=== PATIENT | male | born 1995 | race Caucasian/White ===

== ENCOUNTER 2024-05-05 02:45 | Emergency (ER) | payer OTHER ==
[~2024-05-05] VITALS: Ht 175.3 cm; Wt 78.5 kg
[2024-05-05 02:47] VITALS: BP 118/86; PULSE 108; RESP 16; TEMP 98.7; O2SAT 98
[2024-05-05 03:35] LABS: BASOPHILS % (AUTO) 0.2 % (0.0-2.0); EOSINOPHILS # (AUTO) 0.1 K/uL (0-0.4); EOSINOPHILS % (AUTO) 0.4 % (0.0-4.0); HEMATOCRIT 45.9 % (36-52); HEMOGLOBIN 15.6 g/dL (12.0-18.0); LYMPHOCYTES # (AUTO) 0.7 K/uL (2.0-11.5); LYMPHOCYTES % (AUTO) 5.1 % (20.5-51.1); MEAN CORPUSCULAR HEMOGLOBIN 31 pg (27-31); MEAN CORPUSCULAR HGB CONC 34 g/dL (33-37); MEAN CORPUSCULAR VOLUME 90.9 fL (80-94); MONOCYTES # (AUTO) 0.5 K/uL (0.8-1.0); NEUTROPHILS # (AUTO) 12.2 K/uL (1.8-7.7); NEUTROPHILS % (AUTO) 90.3 % (42.2-75.2); PLATELET COUNT (AUTO) 235 K/uL (140-450); RED BLOOD CELL COUNT(AUTO) 5.05 MIL/uL (4.20-6.10); RED CELL DISTRIBUTION WIDTH 13.9 % (11.6-13.7); WHITE BLOOD COUNT (AUTO) 13.5 K/uL (4.8-10.8)
[2024-05-05] MEDS: NACL 0.9% 2,000 ML IV ONE (03:38)
[2024-05-05] MEDS: ONDANSETRON 4 MG/2 ML VIAL IVP ONE (03:40)
[2024-05-05] MEDS: MORPHINE SULFATE 4 MG/ML SYR IVP ONE (03:41)
[2024-05-05 03:55] LABS: ALBUMIN 4.4 g/dL (3.4-5.0); ANION GAP 13.9 (8-16); CALCIUM 9.6 mg/dL (8.5-10.1); CARBON DIOXIDE 25.9 mmol/L (21-32); CREATININE 1.2 mg/dL (0.6-1.3); POTASSIUM 3.8 mmol/L (3.5-5.1); TOTAL BILIRUBIN 0.7 mg/dL (0.0-1.0); TOTAL PROTEIN, SERUM 7.6 g/dL (6.4-8.2)
[2024-05-05 04:55] VITALS: BP 110/64; PULSE 101; RESP 16; O2SAT 98
[2024-05-05] MEDS ORDERED: ONDA-188 SL (05:14)
== END 2024-05-05 05:31 | disposition home or self-care (01) ==
LOC: MED 02:45
DX: R11.2 Nausea with vomiting, unspecified (principal); R19.7 Diarrhea, unspecified
CPT/HCPCS: 36415; 80053; 83690; 85025; 96361; 96374; 96375; 99284; J2270; J2405; J7030